=== PATIENT | female | born 2000 | race African-American/Black ===

== ENCOUNTER 2018-08-13 22:33 | Inpatient (IN) | payer OTHER ==
[2018-08-14] MEDS ORDERED: NS 0.9% 1000 ML** 2,000 ML IV ONE (00:20)
[2018-08-14 00:41] LABS: Hematocrit 34 % (35-47); Hemoglobin 11.9 g/dL (12.0-16.0); Mean Corpuscular HGB Conc 35 g/dL (31-36); Mean Corpuscular Hemoglobin 33 pg (27-31); Mean Corpuscular Volume 93 fL (80-97); Platelet Count 916 10^3/uL (150-450); Red Blood Count 3.65 10^6 /uL (3.70-4.87); Red Cell Distribution Width 19 % (10.5-15); White Blood Count 13.3 10^3/uL (3.5-10.8)
[2018-08-14] MEDS ORDERED: Morphine 4 MG/ML VIAL (1 ml) 4 MG/ML VIAL IV ONE ×3 (00:42→06:49)
--- NOTE | 2018-08-14 00:50 | ED ---
Upper Extremity Pain - HPI Summary HPI Summary: The patient is a 18 y/o F presenting to [facility] with a chief complaint of increased BUE pain starting this morning. She thought that she had slept on her arm in a way that would make it sore, but then her other arm started hurting as well. She was recently in the hospital in [place] being discharged one week ago with similar symptoms from sickle cell disease. She denies fever, nausea, vomiting, CP, and abd pain. In the hospital, she was receiving Morphine 5mg and Dilaudid 1mg. - History of Current Complaint Chief Complaint: EDExtremityUpper Stated Complaint: SICKLE CELL CRISIS PER PT Time Seen by Provider: 08/14/18 00:16 Hx Obtained From: Patient Mechanism Of Injury: Other - sickle cell Onset/Duration: Started Hours Ago, Still Present Timing: Lasting Hours Severity Initially: Mild Severity Currently: Moderate Pain Location: Arm - BUE Character: Aching Aggravating Factor(s): Nothing Alleviating Factor(s): Nothing Associated Signs & Symptoms: Positive: Other - NEGATIVE: abd pain. Negative: Fever, Chest Pain, Nausea, Vomiting - Allergies/Home Medications Allergies/Adverse Reactions: Allergies Allergy/AdvReac Type Severity Reaction Status Date / Time No Known Allergies Allergy Verified 08/13/18 22:40 Home Medications: Home Medications Apheresis Infusions 1 dose IV ONCE 08/14/18 [History Confirmed 08/14/18] Folic Acid 1 mg PO DAILY 08/14/18 [History Confirmed 08/14/18] Hydroxyurea [Siklos] 1,500 mg PO DAILY WITH MEAL 08/14/18 [History Confirmed 06/29] Morphine TAB (NF) [Morphine 30 MG TAB (NF)] 45 mg PO Q6H PRN 08/14/18 [History Confirmed 08/14/18] Oxycodone HCl/Acetaminophen [Oxycodone/Acetaminophen] 1 tab PO Q4H PRN 08/14/18 [History Confirmed 08/14/18] PMH/Surg Hx/FS Hx/Imm Hx Endocrine/Hematology History: Reports: Hx Blood Disorders - sickle cell Denies: Hx Diabetes Respiratory History: Denies: Hx Asthma - Surgical History Surgery Procedure, Year, and Place: none Infectious Disease History: No Infectious Disease History: Denies: Traveled Outside the [place] in Last 30 Days - Family History Known Family History: Positive: Blood Disorder - sickle cell - Social History Alcohol Use: None Hx Substance Use: No Substance Use Type: Reports: None Hx Tobacco Use: No Smoking Status (MU): Never Smoked Tobacco Do You Chew or Dip Tobacco: No Have You Chewed or Dipped Tobacco in the LAST YEAR: No Have You Smoked in the Last Year: No Review of Systems Negative: Fever Negative: Chest Pain Negative: Abdominal Pain, Vomiting, Nausea Positive: Myalgia - BUE All Other Systems Reviewed And Are Negative: Yes Physical Exam - Summary Physical Exam Summary: Appearance: Well-appearing, Well-nourished, lying in bed comfortable Skin: Warm, dry, no obvious rash Eyes: sclera anicteric, no conjunctival pallor ENT: mucous membranes moist Neck: deferred Respiratory: No signs of respiratory distress Cardiovascular: Appears well perfused, pulses are nml Abdomen: deferred Musculoskeletal: Moving all 4 extremities without obvious discomfort Neurological: Awake and alert, mentation is normal, speech is fluent and appropriate Psychiatric: affect is normal, does not appear anxious or depressed Triage Information Reviewed: Yes Vital Signs On Initial Exam: Initial Vitals Temp Pulse Resp BP Pulse Ox 97.6 F 90 18 116/81 100 08/13/18 22:39 08/13/18 22:39 08/13/18 22:39 08/13/18 22:39 08/13/18 22:39 Vital Signs Reviewed: Yes Diagnostics - Vital Signs Vital Signs Temp Pulse Resp BP Pulse Ox 08/13/18 22:39 97.6 F 90 18 116/81 100 - Laboratory Lab Results: Lab Results 08/14/18 Range/Units 00:30 WBC 13.3 H (3.5-10.8) 10^3/uL RBC 3.65 L (3.70-4.87) 10^6 /uL Hgb 11.9 L (12.0-16.0) g/dL Hct 34 L (35-47) % MCV 93 (80-97) fL MCH 33 H (27-31) pg MCHC 35 (31-36) g/dL RDW 19 H (10.5-15) % Plt Count 916 H (150-450) 10^3/uL MPV 8.0 (7.4-10.4) fL Neut % (Auto) Pending Lymph % (Auto) Pending Ramsey % (Auto) Pending Eos % (Auto) Pending Baso % (Auto) Pending Absolute Neuts (auto) Pending Absolute Lymphs (auto) Pending Absolute Monos (auto) Pending Absolute Eos (auto) Pending Absolute Basos (auto) Pending Absolute Nucleated RBC Pending Nucleated RBC % Pending Result Diagrams: 08/14/18 00:30 08/14/18 00:30 Lab Statement: Any lab studies that have been ordered have been reviewed, and results considered in the medical decision making process. Course/Dx - Course Course Of Treatment: The patient is a 18 y/o F presenting to [facility] with a chief complaint of increased BUE pain starting this morning due to sickle cell disease , which she has recently been discharged from the hospital for one week ago. Upon physical exam, the patient exhibits no acute abnormalities. In the ED course, the patient was administered Ns, Morphine, and Oxycodone. Blood work reveals WBC of 13.3, RBC of 3.65, hgb of 11.9, hct of 34, MCH of 33, RDW of 19, plt count of 916, abs neuts of 9.2, abs monos of 1.1, nucleated RBCs of 2.0, BUN /creatinine ratio of 22.8, glucose of 131, alkaline phosphatase of 105, and total protein of 9.0. She is diagnosed with sickle cell pain. She will be a sign -out to Dr. Yodit Shelton MD, at change of shift at 0700 pending disposition. - Diagnoses Provider Diagnoses: Sickle cell pain crisis, Uncontrolled pain Discharge - Sign-Out/Discharge Documenting (check all that apply): Sign-Out Patient Signing out patient TO: Yodit Shelton - Patient is a sign-out at change of shift pending disposition. Patient Received Moderate/Deep Sedation with Procedure: No - Discharge Plan Condition: Stable Disposition: [facility] - Billing Disposition and Condition Condition: STABLE Disposition: Admitted to [facility] - Attestation Statements Document Initiated by Scribe: Yes Documenting Scribe: Shari Cam Provider For Whom Alex is Documenting (Include Credential): Dr. Norman Quiñones MD Scribe Attestation: Shari Lr scribed for Dr. Norman Quiñones MD on 08/15/18 at 0444. Scribe Documentation Reviewed: Yes Provider Attestation: The documentation as recorded by the scribe, Shari Cam accurately reflects the service I personally performed and the decisions made by me, Dr. Norman Quiñones MD Status of Alex Document: Viewed
[2018-08-14 00:59] LABS: ALT 10 U/L (7-52); AST 18 U/L (13-39); Albumin 5.1 g/dL (3.2-5.2); Albumin/Globulin Ratio 1.3 (1-3); Alkaline Phosphatase 105 U/L (34-104); Anion Gap 8 mmol/L (2-11); BUN/Creatinine Ratio 22.8 (8-20); Blood Urea Nitrogen 13 mg/dL (6-24); CO2 Carbon Dioxide 24 mmol/L (22-32); Chloride 103 mmol/L (101-111); EGFR African American 163.6 (>60); EGFR Non-African American 135.2 (>60); Globulin 3.9 g/dL (2-4); Glucose 131 mg/dL (70-100); Potassium 4.3 mmol/L (3.5-5.0); Sodium 135 mmol/L (135-145)
[2018-08-14 01:04] LABS: ABS Basophils 0.1 10^3/ul (0-0.2); ABS Eosinophils 0.2 10^3/ul (0-0.6); ABS Lymphocytes 2.8 10^3/ul (1.0-4.8); ABS Monocytes 1.1 10^3/ul (0-0.8); ABS Neutrophils 9.2 10^3/ul (1.5-7.7); ABS Nucleated RBC 0.2 10^3/ul; Eosinophil % 1.5 %; Lymphocyte % 20.8 %; Nucleated Red Blood Cells % 1.2
[2018-08-14 01:08] LABS: Polychromasia 1+
[2018-08-14] MEDS ORDERED: Morphine 10 MG/ML VIAL (1 ml) IV ONE (01:56)
[2018-08-14] MEDS ORDERED: oxyCODONE TAB* 5 MG TAB PO ONE ×2 (04:07→06:12)
[2018-08-14] MEDS: NS 0.9% 1000 ML** 2,000 ML IV ONE (05:01)
--- NOTE | 2018-08-14 07:21 | ED ---
Progress - Progress Note Progress Note: Pt is a signout from Dr. Quiñones at 0700 on 08/14/18 pending further workup, seen by Dr. Shelton at 0700. She is a 18 y/o F who presented to the ED with a chief complaint of pain. She has hx of sickle cell disease with flare-ups, and her current flare up is mostly in her bilateral upper extremity joints. She was doing apheresis transfusions last year when her dba decided to take a break, starting around . Her dba is Dr. Ohara and her PCP is Sia Winslow in [place]. Her sickle crises usually happen approximately once a month, but she does not come into the hospital every time. She reports bilateral upper extremity joint pain with some chest discomfort when she presses on it. She denies abd pain, burning with urination, dysuria, headache, dizziness, fever, and visual changes. LNMP about 1 month ago but they are irregular. Vital signs while in room: HR 101bpm, BP 140/91, SaO2 100% on room air. Appearance: Well-appearing, moderate pain distress, well-nourished. Rubbing her R hand joints while talking, coherent, does not appear over-medicated with narcotics, speech clear Skin: Warm; color reflects adequate perfusion, dry; multiple macular round dark spots approximately 1cm diameter covering bilateral anterior tibiae Head: Normal Head/Face inspection, atraumatic Eyes: Conjunctiva clear, pupils midpoint ENT: Normal inspection, mucosa moist Neck: Supple, no nodes, no JVD Respiratory: Lungs clear, normal breath sounds, no respiratory distress Cardio: RRR, No murmur, pulses normal, brisk capillary refill Abdomen: Soft, nontender, no masses, non-distended Bowel sounds: Present Musculoskeletal: Strength Intact/ROM intact, no calf tenderness, no edema, no joint deformities Psychological: Normal Neuro: Alert, muscle tone normal, no focal deficit, moves all extremities well Home Medications Medication Instructions Recorded Confirmed Type Apheresis Infusions 1 dose IV ONCE 08/14/18 08/14/18 History Folic Acid 1 mg PO DAILY 08/14/18 08/14/18 History Hydroxyurea [Siklos] 1,500 mg PO DAILY WITH MEAL 08/14/18 08/14/18 History Morphine TAB (NF) [Morphine 30 MG 45 mg PO Q6H PRN 08/14/18 08/14/18 History TAB (NF)] Oxycodone HCl/Acetaminophen 1 tab PO Q4H PRN 08/14/18 08/14/18 History [Oxycodone/Acetaminophen] Course/Dx - Course Course Of Treatment: Pt is a signout from Dr. Quiñones at 0700 on 08/14/18 pending further workup. She has hx of sickle cell disease with flare-ups, and her current flare up is mostly in her bilateral upper extremity joints. Her sickle crises usually happen approximately once a month, but she does not come into the hospital every time. She lives in [place], but is in [place] today because her sister lives here, and she came her for support, because her mother is currently traveling for her job. She reports bilateral upper extremity joint pain with some chest discomfort when she presses on her chest. She denies SOB, abd pain, burning with urination, dysuria, headache, dizziness, fever, and visual changes. LNMP about 1 month ago, but states they are irregular. Vital signs while in room: HR 101bpm, BP 140/91, SaO2 100% on room air. Her dba is Dr. Ohara of [facility], and her PCP is Sia Zamora. Pt receives A-phoresis with Dr. Ohara for treatment of her sickle disease, but they have been "taking a break" from this, and her last treatment was September 2017. In the ED course, pt was given Morphine 23 mg total in 4 doses, and also oxycodone 10mg po x 2, with some relief. But after these above narcotic doses and 4 liters of fluid, pt will be admitted for sickle cell crisis and pain control. Pt agrees to admission, and Dr. Sebastian accepts for admission. I spoke with Dr. Sebastian at 0726 about the pt's present condition who will be accepting the pt to [facility] while we set up contact with her dba. While under Dr. Quiñones's care, the pt received 4 doses of Morphine IV as well as two doses of Oxycodone orally. I gave the pt one dose of Hydromorphone IV. - Diagnoses Provider Diagnoses: Sickle cell pain crisis, Uncontrolled pain - Provider Notifications Discussed Care Of Patient With: Varghese Sebastian - admit Time Discussed With Above Provider: 08:26 Discharge - Sign-Out/Discharge Documenting (check all that apply): Patient Departure, Receiving Sign-Out Receiving patient FROM: Norman Quiñones - Discharge Plan Condition: Stable Disposition: ADMITTED TO [facility] - Billing Disposition and Condition Condition: STABLE Disposition: Admitted to [facility] - Attestation Statements Document Initiated by Abe: Yes Documenting Scribe: Taryn Petit Provider For Whom Alex is Documenting (Include Credential): Dr. Yodit Shelton MD. Scribe Attestation: Taryn Lr, scribed for Dr. Yodit Shelton MD. on 08/15/18 at 0459. Scribe Documentation Reviewed: Yes Provider Attestation: The documentation as recorded by the jeannieibe, Taryn Petit accurately reflects the service I personally performed and the decisions made by me, Dr. Yodit Shelton MD. Status of Scribe Document: Viewed Consult Consult: [id number] - I spoke with Dr. Sebastian about the pt's present condition, who will be accepting her to [facility] with dx including sickle cell pain crisis and uncontrolled pain.
[2018-08-14] MEDS ORDERED: HYDROmorphone INJ1* 1 MG/ML SYRINGE IV SLOW PU ONE (07:31)
[2018-08-14 08:06] LABS: HCG Pregnancy < 0.60 mIU/mL
[2018-08-14] MEDS ORDERED: Naloxone* 0.4 MG/ML 1 ML VIAL IV PUSH PRN (08:22)
[2018-08-14] MEDS ORDERED: Ondansetron INJ* 2 MG/ML VIAL IV PRN (08:39)
[2018-08-14 08:57] LABS: Urine Appearance Clear; Urine Bilirubin Negative (Negative); Urine Blood Negative (Negative); Urine Color Yellow; Urine Glucose Negative (Negative); Urine Ketones Negative (Negative); Urine Nitrite Negative (Negative); Urine Protein Negative (Negative); Urine Urobilinogen Negative (Negative)
[2018-08-14] MEDS ORDERED: HYDROmorphone PCA* 20 MG/20 ML PCA.SYRING PCA SCH ×2 (09:00→17:17)
[2018-08-14] MEDS: NS 0.9% 1000 ML** 1,000 ML IV SCH (10:55)
[2018-08-14] MEDS: Docusate CAP* 100 MG PO SCH (11:25)
[2018-08-14] MEDS: Folic Acid TAB* 1 MG PO SCH (11:26)
[2018-08-14] MEDS: Enoxaparin(*) 40 MG/0.4 ML SYR SUBCUT SCH (11:26)
--- NOTE | 2018-08-14 11:46 | HP ---
ADMISSION HISTORY AND PHYSICAL: DATE OF ADMISSION: 08/14/18 PRIMARY CARE PROVIDER: Dr. Winslow in [place]. LIVESTOCK EXHIBITOR: Dr. Ohara at [facility]. HEALTHCARE PROXY: Her mother. CODE STATUS: Full. SOURCE OF INFORMATION: History obtained from interview with the patient. RELIABILITY: Good. CHIEF COMPLAINT: Pain. HISTORY OF PRESENT ILLNESS: This is a 18-year-old with past medical history of sickle cell disease, who had a recent hospital stay at [facility] approximately on lasting 4 to 5 days with vaso-occlusive crisis after returning from a trip to [facility] where she had upper respiratory tract infection. Previously, she has had several hospital stays per year,;however, this has been increasing this year reportedly, which the patient relates her bird keeper thinks it is secondary to advancing age as well as break from her apheresis treatments, which were stopped last October. Two days prior to this hospital stay, she developed brief chest pain, which then resolved and then developed arm pain, which then began to hurt in her left arm as well as her back, but not consistently. She typically has leg and back pain when she has pain crises. She denies any fevers or shortness of breath, nausea, vomiting, dysuria, GI, or other symptoms. Her medications at home have been changing in regards to her pain control and the attempts to have better controlled her pain, prevent hospital stays, otherwise no other changes to her medications. PAST MEDICAL HISTORY: Includes sickle cell disease. HOME MEDICATIONS: Include: 1. Hydroxyurea 1500 mg daily. 2. Folic acid 1 mg daily. 3. Long-acting morphine 45 mg twice daily, p.r.n. 4. Morphine 45 mg every 4 hours p.r.n. ALLERGIES: None. FAMILY HISTORY: Mother and father both have sickle trait. SOCIAL HISTORY: She works at [employer]. Not a smoker. REVIEW OF SYSTEMS: As per HPI, otherwise all other systems negative. PHYSICAL EXAMINATION GENERAL: A 18-year-old female, lying flat in bed, interactive, in no apparent distress. Vitals: In the emergency room 140/91, heart rate 93, respiratory rate is 16, she is 100% on room air, T-max is 98 degrees. HEENT: Oropharynx is clear. Nonicteric sclerae. No conjunctival pallor. LUNGS: Her lungs are clear to auscultation. HEART: Regular rate and rhythm. No murmurs, rubs, or gallops. EXTREMITIES: Warm and well perfused. She has no clubbing, cyanosis, or edema. NEUROLOGIC: She is alert and oriented x3. Her cranial nerves II through XII are intact. DIAGNOSTIC STUDIES/LAB DATA: Labs reviewed. White blood cell count 13.3, hemoglobin 11.9 with an MCV of 93, platelets 916. BUN 13, creatinine 0.57. Urine is pending. Data, chest x-ray pending. ASSESSMENT AND PLAN: This is a 18-year-old female with past medical history of sickle cell disease presenting with a second vaso-occlusive crisis without apparent complication this year. 1. Pain crisis. Concern is if she is placed on p.r.n. dosing, she will receive inadequate pain medication during this hospital stay secondary to the low frequency of patients with sickle disease treat the patient with pain crises. Place the patient on MOLD MOVER with Dilaudid loading dose 0.5 mg, bolus 0.2 lockout 10 and continue dose of 0.3. I suspect she will need to increase in the next 1 or 2 hours to achieve steady state dosing with pain control. Continue normal saline at 75 cc, bowel regimen, MiraLax and Colace daily. Spirometry with nursing education. Chest x-ray is pending given her presence of chest pain, although no fever or shortness of breath and the pain is only pleuritic, not constant. Low suspicion for acute chest. 2. DVT prophylaxis is Lovenox. [id number]/[facility] #: [id number] MTDShannon
[2018-08-14] MEDS: HydroxyUREA CAP* 500 MG CAP PO SCH (12:44)
--- NOTE | 2018-08-14 22:34 | CONS ---
CC: Dr. Winslow of primary care in [place]; Dr. Ohara at [facility] in Hematology * MEDICAL ONCOLOGY/HEMATOLOGY CONSULTATION NOTE: DATE OF CONSULT: 08/14/18 REASON FOR CONSULTATION: Sickle cell anemia. HISTORY OF PRESENT ILLNESS: Magalis Fontaine is a 18-year-old female who reports a history of SS disease, sickle cell anemia. She reports that she has had symptomatic issues since at least age 3. 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 She has had multiple hospitalizations over time typically once or twice a year in [place]. She is cared for there by the hospitalist service when she is admitted. Reports that the rest room matron in [place] do not care for her. She has previously been seen by the hematology service at [facility] , and more recently since April 2017 [address] Ohara at [facility]. She received apheresis therapy to try to maintain adequate H and H and to limit need for iron and prevent iron overload from April to October of 2017. During this period of time, she had no more than 1 or 2 hospitalizations over the course of the year. Since stopping her apheresis therapy, she reports, she has been hospitalized approximately once a month. She most recently was hospitalized in [place] at [facility] and discharged home on 07/31/17. She was in the hospital for 4 to 5 days with a vaso-occlusive crisis after returning to [place] from a trip to [facility] with a sinus infection. She reports that she was not treated with antibiotics during that period of time, just IV fluids and pain medications. Two days prior to this hospitalization, she developed a brief episode of chest pain, which then resolved, but then more recently developed pain in her arms, which she rates as an 8/10 at the time of admission, although now currently down to 6/10. She denies any significant shortness of breath with this episode. Her pain medications have recently been changed and her primary care physician is trying to transition them. She reports that in the past she was using MS Contin 45 mg on a p.r.n. basis up to 2 times per day and short acting morphine 45 mg q.4 hours p.r.n. More recently, the MS Contin is to have been used is a long acting medication, but she has been using oxycodone and OxyContin for her short-acting pain medications. PAST MEDICAL HISTORY: Episode of renal failure at age 8 with a 1 month hospitalization. She does not believe that she received dialysis at that time. PAST SURGICAL HISTORY: No surgeries. Hospitalization is otherwise only for sickle cell disease. HOME MEDICATIONS: 1. Hydroxyurea 1500 mg daily. 2. Folic acid 1 mg daily. 3. MS Contin 45 mg b.i.d. p.r.n. 4. Oxycodone/Percocet p.r.n. ALLERGIES: None. FAMILY HISTORY: Mother, father and sister all have sickle cell trait. No other family members with sickle cell anemia. SOCIAL HISTORY: The patient works for [employer]. She is not a smoker or a drinker. No illicit drugs. REVIEW OF SYSTEMS: No hypertension, diabetes, IN or CVA. No significant change in appetite or weight. No significant change in bowel or bladder habits. Review of systems is otherwise negative except as discussed above. PHYSICAL EXAM: Vital Signs: Blood pressure 140/91, pulse in the 90s, O2 saturation 100% on room air, afebrile. HEENT: PERRL, EOMI. No erythema or exudates. No scleral icterus. No palpable cervical, supraclavicular, or axillary adenopathy. Lungs: Clear. Heart: Regular rate and rhythm without murmurs, rubs or gallops. Abdomen: Soft, nontender without masses or organomegaly. Extremities: No clubbing cyanosis or edema. Back: No CVA or spinal tenderness. Neurological Exam: Without focal deficits. LABORATORY STUDIES: CBC: White count 13,300, H and H with a hemoglobin of 11.9 , platelet count 916,000. MCV of 93. Review of the peripheral smear revealed evidence of [place] bodies as well as target cells. No sickle cells are seen at the present time. She has occasional nucleated red blood cells. IMPRESSION AND PLAN: A 18-year-old female with SS disease. Given the [place] bodies and the target cells seen, she has functional asplenia. She is currently having a vaso-occlusive crisis after having had one just recently. She is receiving appropriate amounts of IV fluids. 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 She certainly should be continued on her usual folic acid and hydroxyurea. There is no role for antibiotics at this time as her chest x-ray is negative and she is afebrile. In the past, with similar crisis, she has improved within several days. Given her rapid increase in the number of recent hospitalizations , she plans to check back with her doctor at [facility] in [place] , Dr. Ohara in terms of the potential need for further exchange transfusions. However, given the fact that no sickle cells are seen on her peripheral smear , this is no likely to improve the current situation acutely. Her high platelet count is almost certainly due to her functional asplenia. She will remain in the hospital service, but we will continue to follow her. Her pain has decreased and she has been placed on the current pain regimen down from an 8/10 to a 6/10. She reports that even when she is on a crisis, she has a pain that typically ranges from 0 to 2 on a scale of 1 to 10. [id number]/[facility] #: [id number] MTDShannon
[2018-08-15] MEDS: NS 0.9% 1000 ML** 1,000 ML IV SCH (00:17)
[2018-08-15 07:55] LABS: Hematocrit 29 % (35-47); Hemoglobin 10.3 g/dL (12.0-16.0); Mean Corpuscular HGB Conc 36 g/dL (31-36); Mean Corpuscular Hemoglobin 33 pg (27-31); Mean Corpuscular Volume 93 fL (80-97); Mean Platelet Volume 7.8 fL (7.4-10.4); Platelet Count 826 10^3/uL (150-450); Red Cell Distribution Width 19 % (10.5-15); White Blood Count 10.4 10^3/uL (3.5-10.8)
[2018-08-15 07:56] LABS: ABS Basophils 0.1 10^3/ul (0-0.2); ABS Eosinophils 0.6 10^3/ul (0-0.6); ABS Lymphocytes 3.1 10^3/ul (1.0-4.8); ABS Monocytes 1.2 10^3/ul (0-0.8); ABS Neutrophils 5.4 10^3/ul (1.5-7.7); ABS Nucleated RBC 0.1 10^3/ul; Eosinophil % 5.9 %; Lymphocyte % 29.5 %; Nucleated Red Blood Cells % 1.2
[2018-08-15] MEDS: Docusate CAP* 100 MG PO SCH (10:06)
[2018-08-15] MEDS: Enoxaparin(*) 40 MG/0.4 ML SYR SUBCUT SCH (10:06)
[2018-08-15] MEDS: Polyethylene Glycol 3350* 17 GM PACKET PO SCH (10:06)
[2018-08-15] MEDS: Folic Acid TAB* 1 MG PO SCH (10:07)
[2018-08-15] MEDS: HydroxyUREA CAP* 500 MG CAP PO SCH (10:07)
--- NOTE | 2018-08-15 17:34 | PN ---
Subjective Date of Service: 08/15/18 Interval History: Pain better but persists in right arm, back and intermittently in chest with deep breathing Objective Active Medications: Docusate Sodium (Colace Cap*) 200 mg PO DAILY [facility] Last Admin: 08/15/18 10:06 Dose: 200 mg Enoxaparin Sodium (Lovenox(*)) 40 mg SUBCUT Q24H [facility] Last Admin: 08/15/18 10:06 Dose: 40 mg Folic Acid (Folvite Tab*) 1 mg PO DAILY [facility] Last Admin: 08/15/18 10:07 Dose: 1 mg Hydroxyurea (Hydrea Cap*) 1,500 mg PO DAILY WITH MEAL [facility] Last Admin: 08/15/18 10:07 Dose: 1,500 mg Sodium Chloride (Ns 0.9% 1000 Ml) 1,000 mls @ 75 mls/hr IV PER RATE [facility] Last Admin: 08/15/18 00:17 Dose: 75 mls/hr Hydromorphone HCl (Dilaudid Supervisor Screen Making*) 20 mg in 20 mls @ 0 mls/hr CARBURETOR REPAIRER .change Q24H [facility]; Protocol Last Admin: 08/15/18 10:01 Dose: 0.6 mls/hr Naloxone HCl (Narcan*) 0.08 mg IV PUSH .Q2MIN PRN PRN Reason: OVERSEDATION Ondansetron HCl (Zofran Inj*) 4 mg IV Q4H PRN PRN Reason: NAUSEA/VOMITING Polyethylene Glycol/Electrolytes (Miralax*) 17 gm PO DAILY [facility] Last Admin: 08/15/18 10:06 Dose: 17 gm Vital Signs - 8 hr 08/15/18 08/15/18 08/15/18 10:00 10:01 11:15 Temperature 98.7 F Pulse Rate 94 Respiratory 16 16 16 Rate Blood Pressure (mmHg) O2 Sat by Pulse 100 100 Oximetry 08/15/18 08/15/18 08/15/18 11:29 12:00 13:30 Temperature Pulse Rate Respiratory 16 14 Rate Blood Pressure 101/53 (mmHg) O2 Sat by Pulse 100 Oximetry 08/15/18 08/15/18 14:00 15:49 Temperature 98.4 F Pulse Rate 99 Respiratory 16 16 Rate Blood Pressure 104/58 (mmHg) O2 Sat by Pulse 100 100 Oximetry Oxygen Devices in Use Now: None Appearance: NAD, lying flat Eyes: No Scleral Icterus, PERRLA Ears/Nose/Mouth/Throat: NL Teeth, Lips, Gums, Clear Oropharnyx Neck: NL Appearance and Movements; NL JVP, Trachea Midline Respiratory: Symmetrical Chest Expansion and Respiratory Effort, Clear to Auscultation Cardiovascular: NL Sounds; No Murmurs; No JVD, RRR Abdominal: NL Sounds; No Tenderness; No Distention, No Hepatosplenomegaly Lymphatic: No Cervical Adenopathy Extremities: No Edema Skin: No Rash or Ulcers Neurological: Alert and Oriented x 3 Result Diagrams: 08/15/18 07:39 08/14/18 00:30 Additional Lab and Data: Lab Results 08/14/18 Range/Units 00:30 WBC 13.3 H (3.5-10.8) 10^3/uL RBC 3.65 L (3.70-4.87) 10^6 /uL Hgb 11.9 L (12.0-16.0) g/dL Hct 34 L (35-47) % MCV 93 (80-97) fL MCH 33 H (27-31) pg MCHC 35 (31-36) g/dL RDW 19 H (10.5-15) % Plt Count 916 H (150-450) 10^3/uL MPV 8.0 (7.4-10.4) fL Neut % (Auto) Pending Lymph % (Auto) Pending [place] % (Auto) Pending Eos % (Auto) Pending Baso % (Auto) Pending Absolute Neuts (auto) Pending Absolute Lymphs (auto) Pending Absolute Monos (auto) Pending Absolute Eos (auto) Pending Absolute Basos (auto) Pending Absolute Nucleated RBC Pending Nucleated RBC % Pending Assess/Plan/Problems-Billing Assessment: 18 yo F h/o sickle cell disease presents with vasoocclusive pain crisis - Patient Problems (1) Vaso-occlusive pain due to sickle cell disease Comment: c/w fluids c/w dilaudid CARBURETOR REPAIRER but consider transition to PO tomorrow if pain continues to improve c/w folic acid and hydroxyurea will need to connect with snf provider to continue apharesis when discharged (2) DVT prophylaxis Comment: lovenox
[2018-08-15] MEDS ORDERED: HYDROmorphone PCA* 20 MG/20 ML PCA.SYRING PCA SCH (18:44)
[2018-08-16] MEDS: NS 0.9% 1000 ML** 1,000 ML IV SCH ×2 (03:00→17:05)
[2018-08-16 06:14] LABS: ABS Basophils 0.1 10^3/ul (0-0.2); ABS Eosinophils 0.5 10^3/ul (0-0.6); ABS Lymphocytes 2.9 10^3/ul (1.0-4.8); ABS Monocytes 1.1 10^3/ul (0-0.8); ABS Neutrophils 4.2 10^3/ul (1.5-7.7); ABS Nucleated RBC 0.2 10^3/ul; Eosinophil % 5.7 %; Hematocrit 29 % (35-47); Hemoglobin 10.3 g/dL (12.0-16.0); Lymphocyte % 33.3 %; Mean Corpuscular HGB Conc 35 g/dL (31-36); Mean Corpuscular Hemoglobin 33 pg (27-31); Mean Corpuscular Volume 95 fL (80-97); Mean Platelet Volume 7.8 fL (7.4-10.4); Nucleated Red Blood Cells % 1.9; Platelet Count 678 10^3/uL (150-450); Red Blood Count 3.07 10^6 /uL (3.70-4.87); Red Cell Distribution Width 18 % (10.5-15); White Blood Count 8.8 10^3/uL (3.5-10.8)
[2018-08-16] MEDS: Enoxaparin(*) 40 MG/0.4 ML SYR SUBCUT SCH (07:58)
[2018-08-16] MEDS: Folic Acid TAB* 1 MG PO SCH (07:58)
[2018-08-16] MEDS: Polyethylene Glycol 3350* 17 GM PACKET PO SCH (07:58)
[2018-08-16] MEDS: Docusate CAP* 100 MG PO SCH (07:58)
[2018-08-16] MEDS: HydroxyUREA CAP* 500 MG CAP PO SCH (08:07)
--- NOTE | 2018-08-16 11:40 | PN ---
Subjective Date of Service: 08/16/18 Interval History: Ms. 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 She notes that she has been on long acting morphine 45mg po BID for a long time. This is confirmed via istop. She also takes oxycodone or short acting morphine for breakthrough pain. Objective Active Medications: Docusate Sodium (Colace Cap*) 200 mg PO DAILY [facility] Enoxaparin Sodium (Lovenox(*)) 40 mg SUBCUT Q24H [facility] Folic Acid (Folvite Tab*) 1 mg PO DAILY [facility] Hydroxyurea (Hydrea Cap*) 1,500 mg PO DAILY WITH MEAL [facility] Sodium Chloride (Ns 0.9% 1000 Ml) 1,000 mls @ 75 mls/hr IV PER RATE [facility] Hydromorphone HCl (Dilaudid Trolley Car Operator*) 20 mg in 20 mls @ 0 mls/hr ELECTRICAL FOREMAN .change Q24H [facility]; Protocol Naloxone HCl (Narcan*) 0.08 mg IV PUSH .Q2MIN PRN Ondansetron HCl (Zofran Inj*) 4 mg IV Q4H PRN Polyethylene Glycol/Electrolytes (Miralax*) 17 gm PO DAILY [facility] Vital Signs: Temp Pulse Resp BP Pulse Ox 98 F 98 22 98/52 100 08/16/18 11:18 08/16/18 11:18 08/16/18 11:18 08/16/18 11:18 08/16/18 11:18 Oxygen Devices in Use Now: None Appearance: Female lying in bed in NAD Eyes: No Scleral Icterus Ears/Nose/Mouth/Throat: Mucous Membranes Moist Neck: Trachea Midline Respiratory: Symmetrical Chest Expansion and Respiratory Effort, Clear to Auscultation Cardiovascular: NL Sounds; No Murmurs; No JVD, No Edema Abdominal: NL Sounds; No Tenderness; No Distention Extremities: No Edema Skin: No Rash or Ulcers Neurological: Alert and Oriented x 3, NL Muscle Strength and Tone Result Diagrams: 08/16/18 05:54 08/14/18 00:30 Additional Lab and Data: . Assess/Plan/Problems-Billing Assessment: Ms. Fontaine is a 18 yo F h/o sickle cell disease presents with vasoocclusive pain crisis. - Patient Problems (1) Vaso-occlusive pain due to sickle cell disease Comment: - c/w fluids - switch to morphine ER per home dose with dilaudid IV intermittently for breakthrough pain. - c/w folic acid and hydroxyurea - will need to connect with long term care social worker provider to continue apharesis when discharged (2) DVT prophylaxis Comment: - lovenox Status and Disposition: Inpatient. Anticipate discharge to home when medically stable.
[2018-08-16] MEDS ORDERED: HYDROmorphone INJ* 0.5 MG/0.5 ML SYRINGE IV SLOW PU PRN (12:05)
[2018-08-16] MEDS: Morphine TAB Extended Release (*) 30 MG TAB.ER PO SCH ×2 (12:19→20:01)
[2018-08-16] MEDS: Morphine TAB Extended Release (*) 15 MG TAB.ER PO SCH ×2 (12:19→20:00)
[2018-08-16] MEDS: HYDROmorphone INJ1* 1 MG/ML SYRINGE IV SLOW PU PRN ×3 (13:32→22:23)
[2018-08-16 17:52] LABS: Hemoglobin Variant 2 42.7 = Hb C %; Variant Hemoglobin 51.2 = Hb S %
[2018-08-17] MEDS: HYDROmorphone INJ1* 1 MG/ML SYRINGE IV SLOW PU PRN ×4 (03:40→19:41)
[2018-08-17 06:15] LABS: Hematocrit 28 % (35-47); Hemoglobin 10.3 g/dL (12.0-16.0); Mean Corpuscular HGB Conc 36 g/dL (31-36); Mean Corpuscular Hemoglobin 34 pg (27-31); Mean Corpuscular Volume 93 fL (80-97); Mean Platelet Volume 7.9 fL (7.4-10.4); Platelet Count 693 10^3/uL (150-450); Red Blood Count 3.07 10^6 /uL (3.70-4.87); Red Cell Distribution Width 18 % (10-15); White Blood Count 9.1 10^3/uL (3.5-10.8)
[2018-08-17] MEDS: Morphine TAB Extended Release (*) 15 MG TAB.ER PO SCH (07:38)
[2018-08-17] MEDS: Morphine TAB Extended Release (*) 30 MG TAB.ER PO SCH ×2 (07:38→21:23)
[2018-08-17] MEDS: HydroxyUREA CAP* 500 MG CAP PO SCH (07:42)
[2018-08-17] MEDS: Folic Acid TAB* 1 MG PO SCH (07:42)
[2018-08-17] MEDS: Polyethylene Glycol 3350* 17 GM PACKET PO SCH (07:42)
[2018-08-17] MEDS: Docusate CAP* 100 MG PO SCH (07:42)
[2018-08-17] MEDS: Enoxaparin(*) 40 MG/0.4 ML SYR SUBCUT SCH (07:44)
[2018-08-17] MEDS: NS 0.9% 1000 ML** 1,000 ML IV SCH ×3 (07:47→22:48)
[2018-08-17 07:58] LABS: ABS Basophils 0.1 10^3/ul (0-0.2); ABS Eosinophils 0.4 10^3/ul (0-0.6); ABS Lymphocytes 2.2 10^3/ul (1.0-4.8); ABS Monocytes 1.1 10^3/ul (0-0.8); ABS Neutrophils 5.3 10^3/ul (1.5-7.7); ABS Nucleated RBC 0.1 10^3/ul; Eosinophil % 4.5 %; Lymphocyte % 24.4 %; Nucleated Red Blood Cells % 0.9
[2018-08-17] MEDS: oxyCODONE TAB* 5 MG TAB PO PRN ×2 (13:08→22:51)
--- NOTE | 2018-08-17 14:45 | PN ---
Subjective Date of Service: 08/17/18 Interval History: Ms. Fontaine reports ongoing pain to her right arm that is only minimally helped by the pain regimen thus far. She denies other complaint. She notes consistent follow up with her sickle cell specialist in [place]. Objective Active Medications: Docusate Sodium (Colace Cap*) 200 mg PO DAILY [facility] Enoxaparin Sodium (Lovenox(*)) 40 mg SUBCUT Q24H [facility] Folic Acid (Folvite Tab*) 1 mg PO DAILY [facility] Hydromorphone HCl (Dilaudid Inj1s*) 2 mg IV SLOW PU Q4H PRN Hydroxyurea (Hydrea Cap*) 1,500 mg PO DAILY WITH MEAL [facility] Sodium Chloride (Ns 0.9% 1000 Ml) 1,000 mls @ 75 mls/hr IV PER RATE [facility] Morphine Sulfate (Ms Contin(*)) 60 mg PO BID [facility] Naloxone HCl (Narcan*) 0.08 mg IV PUSH .Q2MIN PRN Ondansetron HCl (Zofran Inj*) 4 mg IV Q4H PRN Oxycodone HCl (Roxycodone Tab*) 20 mg PO Q4H PRN Polyethylene Glycol/Electrolytes (Miralax*) 17 gm PO DAILY [facility] Vital Signs: Temp Pulse Resp BP Pulse Ox 98.4 F 96 18 104/62 100 08/17/18 11:00 08/17/18 11:00 08/17/18 13:08 08/17/18 11:00 08/17/18 11:00 Oxygen Devices in Use Now: None Appearance: Female lying in bed in NAD Eyes: No Scleral Icterus Ears/Nose/Mouth/Throat: Mucous Membranes Moist Respiratory: Symmetrical Chest Expansion and Respiratory Effort, Clear to Auscultation Cardiovascular: NL Sounds; No Murmurs; No JVD, No Edema Abdominal: NL Sounds; No Tenderness; No Distention Skin: No Rash or Ulcers Neurological: Alert and Oriented x 3, NL Muscle Strength and Tone Nutrition: Taking PO's Result Diagrams: 08/17/18 05:46 08/14/18 00:30 Additional Lab and Data: . Assess/Plan/Problems-Billing Assessment: Ms. Fontaine is a 18 yo F h/o sickle cell disease presents with vasoocclusive pain crisis. - Patient Problems (1) Vaso-occlusive pain due to sickle cell disease Comment: - Some slow improvement noted - Increase morphine ER to 60mg po BID, oxycodone 20mg po prn added, continue IV dilaudid prn but hope to discontinue by tomorrow - Continue folic acid and hydroxyurea - Patient receiving consistent and close follow up with sickle cell specialist in [place], including routine aphresis (2) DVT prophylaxis Comment: - Lovenox Status and Disposition: Inpatient. Anticipate discharge to home when medically stable.
[2018-08-18] MEDS: HYDROmorphone INJ1* 1 MG/ML SYRINGE IV SLOW PU PRN ×4 (01:25→20:44)
[2018-08-18] MEDS: oxyCODONE TAB* 5 MG TAB PO PRN ×4 (03:44→23:32)
[2018-08-18] MEDS: Enoxaparin(*) 40 MG/0.4 ML SYR SUBCUT SCH (07:14)
[2018-08-18] MEDS: Folic Acid TAB* 1 MG PO SCH (07:19)
[2018-08-18] MEDS: Morphine TAB Extended Release (*) 30 MG TAB.ER PO SCH ×2 (07:19→20:44)
[2018-08-18] MEDS: Docusate CAP* 100 MG PO SCH (07:19)
[2018-08-18] MEDS: HydroxyUREA CAP* 500 MG CAP PO SCH (07:21)
[2018-08-18] MEDS: Polyethylene Glycol 3350* 17 GM PACKET PO SCH (07:34)
--- NOTE | 2018-08-18 08:11 | PN ---
Subjective Date of Service: 08/18/18 Interval History: Ms. Fontaine reports that she continues to have significant right arm and shoulder pain despite the adjustments made in her narcotic regimen. She believes that the oxycodone does help and she is interested in trying an increased dose of that in an effort to move away from IV dilaudid. She denies other complaint. Objective Active Medications: Docusate Sodium (Colace Cap*) 200 mg PO DAILY [facility] Enoxaparin Sodium (Lovenox(*)) 40 mg SUBCUT Q24H [facility] Folic Acid (Folvite Tab*) 1 mg PO DAILY [facility] Hydromorphone HCl (Dilaudid Inj1s*) 2 mg IV SLOW PU Q4H PRN Hydroxyurea (Hydrea Cap*) 1,500 mg PO DAILY WITH MEAL [facility] Sodium Chloride (Ns 0.9% 1000 Ml) 1,000 mls @ 75 mls/hr IV PER RATE [facility] Morphine Sulfate (Ms Contin(*)) 60 mg PO BID [facility] Naloxone HCl (Narcan*) 0.08 mg IV PUSH .Q2MIN PRN Ondansetron HCl (Zofran Inj*) 4 mg IV Q4H PRN Oxycodone HCl (Roxycodone Tab*) 20 mg PO Q4H PRN Polyethylene Glycol/Electrolytes (Miralax*) 17 gm PO DAILY [facility] Vital Signs: Temp Pulse Resp BP Pulse Ox 98.5 F 86 18 100/56 100 08/18/18 06:07 08/18/18 06:07 08/18/18 07:34 08/18/18 06:07 08/18/18 06:07 Oxygen Devices in Use Now: None Appearance: Female lying in bed in NAD Eyes: No Scleral Icterus Ears/Nose/Mouth/Throat: Mucous Membranes Moist Respiratory: Symmetrical Chest Expansion and Respiratory Effort, Clear to Auscultation Cardiovascular: NL Sounds; No Murmurs; No JVD, No Edema Abdominal: NL Sounds; No Tenderness; No Distention Extremities: No Edema Skin: No Rash or Ulcers Neurological: Alert and Oriented x 3, NL Muscle Strength and Tone Nutrition: Taking PO's Result Diagrams: 08/17/18 05:46 08/14/18 00:30 Additional Lab and Data: . Assess/Plan/Problems-Billing Assessment: Ms. Fontaine is a 18 yo F h/o sickle cell disease presents with vasoocclusive pain crisis. - Patient Problems (1) Vaso-occlusive pain due to sickle cell disease Comment: - Continued slow improvement - Continue morphine ER 60mg po BID, increase oxycodone to 30mg q4h, continue IV dilaudid prn but hope to discontinue by tomorrow - Continue folic acid and hydroxyurea - Patient receiving consistent and close follow up with sickle cell specialist in [place], including routine aphresis (2) DVT prophylaxis Comment: - Lovenox Status and Disposition: Inpatient. Anticipate discharge to home when medically stable.
[2018-08-18] MEDS: NS 0.9% 1000 ML** 1,000 ML IV SCH (12:23)
[2018-08-19] MEDS: NS 0.9% 1000 ML** 1,000 ML IV SCH (01:42)
[2018-08-19] MEDS: HYDROmorphone INJ1* 1 MG/ML SYRINGE IV SLOW PU PRN ×3 (01:42→10:34)
[2018-08-19 06:53] LABS: ABS Basophils 0.1 10^3/ul (0-0.2); ABS Eosinophils 0.7 10^3/ul (0-0.6); ABS Lymphocytes 2.8 10^3/ul (1.0-4.8); ABS Monocytes 0.9 10^3/ul (0-0.8); ABS Neutrophils 3.2 10^3/ul (1.5-7.7); ABS Nucleated RBC 0.1 10^3/ul; Eosinophil % 9.7 %; Hematocrit 27 % (35-47); Hemoglobin 9.8 g/dL (12.0-16.0); Lymphocyte % 35.7 %; Mean Corpuscular HGB Conc 37 g/dL (31-36); Mean Corpuscular Hemoglobin 34 pg (27-31); Mean Corpuscular Volume 93 fL (80-97); Mean Platelet Volume 7.5 fL (7.4-10.4); Platelet Count 606 10^3/uL (150-450); Red Blood Count 2.91 10^6 /uL (3.70-4.87); Red Cell Distribution Width 19 % (10-15); White Blood Count 7.7 10^3/uL (3.5-10.8)
[2018-08-19] MEDS: oxyCODONE TAB* 5 MG TAB PO PRN ×2 (08:09→12:33)
[2018-08-19] MEDS: Folic Acid TAB* 1 MG PO SCH (08:12)
[2018-08-19] MEDS: Morphine TAB Extended Release (*) 30 MG TAB.ER PO SCH (08:12)
[2018-08-19] MEDS: Docusate CAP* 100 MG PO SCH (08:12)
[2018-08-19] MEDS: HydroxyUREA CAP* 500 MG CAP PO SCH (08:13)
[2018-08-19] MEDS: Enoxaparin(*) 40 MG/0.4 ML SYR SUBCUT SCH (08:14)
[2018-08-19] MEDS: Polyethylene Glycol 3350* 17 GM PACKET PO SCH (08:15)
[2018-08-19 11:47] VITALS: BP 106/59
--- NOTE | 2018-08-19 12:43 | PN ---
Subjective Date of Service: 08/19/18 Interval History: Ms. Fontaine states that she continues to have pain but feels that it will be manageable on her oral pain med regimen. She denies other complaint and is amenable to discharge to go stay with her sister here in [place]. Objective Active Medications: Docusate Sodium (Colace Cap*) 200 mg PO DAILY [facility] Enoxaparin Sodium (Lovenox(*)) 40 mg SUBCUT Q24H [facility] Folic Acid (Folvite Tab*) 1 mg PO DAILY [facility] Hydromorphone HCl (Dilaudid Inj1s*) 2 mg IV SLOW PU Q4H [facility]N Hydroxyurea (Hydrea Cap*) 1,500 mg PO DAILY WITH MEAL [facility] Sodium Chloride (Ns 0.9% 1000 Ml) 1,000 mls @ 75 mls/hr IV PER RATE [facility] Morphine Sulfate (Ms Contin(*)) 60 mg PO BID [facility] Naloxone HCl (Narcan*) 0.08 mg IV PUSH .Q2MIN PRN Ondansetron HCl (Zofran Inj*) 4 mg IV Q4H PRN Oxycodone HCl (Roxycodone Tab*) 30 mg PO Q4H PRN Polyethylene Glycol/Electrolytes (Miralax*) 17 gm PO DAILY [facility] Vital Signs: Temp Pulse Resp BP Pulse Ox 98.1 F 84 18 106/59 100 08/19/18 11:00 08/19/18 11:00 08/19/18 12:33 08/19/18 11:00 08/19/18 11:00 Oxygen Devices in Use Now: None Appearance: Female lying in bed in NAD Eyes: No Scleral Icterus Ears/Nose/Mouth/Throat: Mucous Membranes Moist Respiratory: Symmetrical Chest Expansion and Respiratory Effort, Clear to Auscultation Cardiovascular: NL Sounds; No Murmurs; No JVD, No Edema Abdominal: NL Sounds; No Tenderness; No Distention Extremities: No Edema Skin: No Rash or Ulcers Neurological: Alert and Oriented x 3, NL Muscle Strength and Tone Nutrition: Taking PO's Result Diagrams: 08/19/18 06:27 08/14/18 00:30 Additional Lab and Data: . Assess/Plan/Problems-Billing Assessment: Ms. Fontaine is a 18 yo F h/o sickle cell disease presents with vasoocclusive pain crisis. - Patient Problems (1) Vaso-occlusive pain due to sickle cell disease Comment: - Continued slow improvement, pain reasonably managed on oral meds - Continue morphine ER 60mg po BID, increase oxycodone to 30mg q4h - Continue folic acid and hydroxyurea - Patient receiving consistent and close follow up with sickle cell specialist in [place], including routine aphresis (2) DVT prophylaxis Comment: - Lovenox Status and Disposition: Inpatient. Discharge to home.
--- NOTE | 2018-08-19 13:56 | DS ---
CC: Dr. Winslow * DISCHARGE SUMMARY: DATE OF ADMISSION: 08/14/18 DATE OF DISCHARGE: 08/19/18 PRIMARY CARE PROVIDER: Dr. Winslow. ATTENDING PHYSICIAN: Dr. Allen * (dictation provided by Franny Hopper NP). PRIMARY DIAGNOSIS: Sickle cell pain crisis. SECONDARY DIAGNOSES: None. MEDICATIONS AT THE TIME OF DISCHARGE: 1. Hydroxyurea 1500 mg p.o. daily with meals. 2. Folic acid 1 mg p.o. daily. 3. Morphine sulfate 60 mg p.o. b.i.d. The patient is being provided with an additional 15 mg tablets while she is continued to have some unmanaged pain. 4. Oxycodone 20 mg p.o. q.8 hours, total dispensed dose 40. HOSPITAL COURSE: Ms. Fontaine is a 18-year-old female who presented to the hospital on 08/14/18 with concern for pain in her arm and chest. Please see the dictated H and P from Dr. Varghese Sebastian for complete details. In brief, the patient had a long-term history of sickle cell disease with multiple hospitalizations due to vaso-occlusive pain crisis. In the emergency room, she had labs, which showed WBC 13.3, hemoglobin 11.9, hematocrit 34, and platelet count 916. The remainder of her labs were normal. Her vitals were stable. Ms. Fontaine was admitted to the hospital for symptomatic control of her vaso- occlusive pain crisis. She was treated with Dilaudid intravenously via PC MAINTENANCE TECHNICIAN and IV fluids. She was seen in consultation by Dr. Pavon from Hematology. He notes that "given the [facility] bodies in the target cells seen, she has functional asplenia. She should certainly be continued on her usual folic acid and hydroxyurea. There is no role for antibiotics at this time. Given her rapid increase in the number of recent hospitalizations, she plans to check back with her doctor at [facility], Dr. Ohara, in terms of the potential need for further exchange transfusions. However, given the fact that no sickle cells are seen on the peripheral smear, this is not likely to improve the current situation acutely." Ms. Fontaine has progressed slowly and was doing better today. Her pain is reasonably managed on oral medication regimen that is increased slightly from her home routine. Normally, she states to me she takes morphine sulfate ER 45 mg p.o. b.i.d. with oxycodone p.r.n. This was confirmed via I-STOP. While here in the hospital, we have increased her long-acting dose to 60 mg p.o. b.i.d. Therefore, I have given her an additional several tabs of 15 mg morphine extended release to augment her normal dose. Also given her oxycodone p.r.n. for additional management of pain in the next few days. Ms. Fontaine states she will be following with her primary care physician in [place] on 08/28/18 and that she already has an appointment to meet with her team in [place] regarding ongoing sickle cell management issue and states an intention to do. DISPOSITION: Home. DIET: Regular. ACTIVITY: As tolerated. FOLLOWUP PLANS: 1. Please follow up with Dr. Winslow. 2. Please follow up with Dr. Ohara at [facility]. TIME SPENT: Approximately 60 minutes was spent in the discharge of this patient , more than half the time was spent with the patient at the bedside reviewing the events leading up to and during this hospitalization, performing the physical examination, and reviewing my plan of care. FRANNY HOPPER NP [id number]/[facility] #: [id number] MARILEE
== END 2018-08-19 15:05 | disposition home or self-care (01) | DRG 662 ==
LOC: ED 22:33 → MED 08-14 08:39
PROVIDERS: ADMIT Internal Medicine; ATTEND Internal Medicine
DX: D57.00 Hb-SS disease with crisis, unspecified (principal); Z79.891 Long term (current) use of opiate analgesic; Z79.899 Other long term (current) drug therapy; Z83.2 Family history of diseases of the blood and blood-forming organs and certain disorders involving the immune mechanism
CPT/HCPCS: 36415; 71046; 80053; 81003; 81270; 83020; 84702; 85025; 85060; 99284; A9270-GY; J1170; J1650; J2270

== ENCOUNTER 2020-01-24 19:18 | Inpatient (IN) ==
[2020-01-24] MEDS ORDERED: NS 0.9% 1000 ml BAG 1,000 ML IV ONE (19:26)
[2020-01-24 20:10] LABS: Hematocrit 31 % (35-47); Mean Corpuscular HGB Conc 36 g/dL (31-36); Mean Corpuscular Hemoglobin 33 pg (27-31); Mean Corpuscular Volume 91 fL (80-97); Mean Platelet Volume 8.2 fL (7.4-10.4); Platelet Count 650 10^3/uL (150-450); Red Blood Count 3.39 10^6 /uL (3.70-4.87); Red Cell Distribution Width 19 % (10-15); White Blood Count 7.4 10^3/uL (3.5-10.8)
[2020-01-24 20:19] LABS: Activated Partial Thrombo Time 32.6 seconds (26.0-38.0); INR 1.21 (0.82-1.09)
[2020-01-24 20:21] LABS: Corrected Retic Count 1.6 % (0.5-1.5); Hematocrit for Retic CNT 31 % (35-47); Immature Retic Fraction 0.59; RBC Retic Count 3.37 10^6/uL (3.70-4.87)
[2020-01-24 20:32] LABS: Albumin 5.2 g/dL (3.2-5.2); Albumin/Globulin Ratio 1.4 (1-3); BUN/Creatinine Ratio 16.7 (8-20); C Reactive Protein 1.14 mg/L (<8.01); EGFR African American 172.4 (>60); EGFR Non-African American 142.5 (>60); Globulin 3.8 g/dL (2-4); Magnesium 2.1 mg/dL (1.9-2.7); Potassium 4.4 mmol/L (3.5-5.0); Total Bilirubin 1.3 mg/dL (0.2-1.0)
[2020-01-24 20:51] LABS: ABS Basophils 0.1 10^3/ul (0-0.2); ABS Eosinophils 0.1 10^3/ul (0-0.6); ABS Lymphocytes 1.1 10^3/ul (1.0-4.8); ABS Monocytes 0.6 10^3/ul (0-0.8); ABS Neutrophils 5.5 10^3/ul (1.5-7.7); Eosinophil % 1.1 %; Lymphocyte % 15.4 %; Nucleated Red Blood Cells % 0.5
[2020-01-24 20:54] LABS: Sickle Cells 1+
[2020-01-24] MEDS ORDERED: fentaNYL 100 mcg/2 ml 50 MCG/ML VIAL IV SLOW PU ONE (21:18)
[2020-01-24 22:35] LABS: Urine Appearance Clear; Urine Bilirubin Negative (Negative); Urine Blood Negative (Negative); Urine Color Yellow; Urine Glucose Negative (Negative); Urine Ketones 1+ (Negative); Urine Nitrite Negative (Negative); Urine Protein Negative (Negative); Urine Urobilinogen Negative (Negative)
[2020-01-24] MEDS ORDERED: HYDROmorphone 1 MG/1 ML SYRINGE IV ONE (23:11)
[2020-01-24] MEDS ORDERED: Ondansetron 4 mg VIAL 2 MG/ML 2 ml VIAL IV PRN (23:12)
[2020-01-24] MEDS ORDERED: HYDROmorphone 1 MG/1 ML SYRINGE IV PRN (23:26)
[2020-01-24] MEDS ORDERED: NS 0.45% 1000 ml BAG 1,000 ML IV SCH (23:45)
[2020-01-25] MEDS: fentaNYL PATCH 100 MCG/HR 1 PATCH TRANSDERM SCH (00:45)
[2020-01-25] MEDS: Enoxaparin 40 MG/0.4 ML SYR SUBCUT SCH ×2 (00:48→23:08)
[2020-01-25] MEDS: HYDROmorphone 1 MG/1 ML SYRINGE IV PRN ×9 (01:24→23:08)
[2020-01-25 04:45] LABS: ABS Basophils 0.1 10^3/ul (0-0.2); ABS Eosinophils 0.4 10^3/ul (0-0.6); ABS Neutrophils 5.5 10^3/ul (1.5-7.7); Eosinophil % 3.6 %; Hematocrit 26 % (35-47); Hemoglobin 9.2 g/dL (12.0-16.0); Lymphocyte % 30.2 %; Mean Corpuscular HGB Conc 36 g/dL (31-36); Mean Corpuscular Hemoglobin 33 pg (27-31); Mean Corpuscular Volume 92 fL (80-97); Mean Platelet Volume 7.7 fL (7.4-10.4); Nucleated Red Blood Cells % 0.2; Platelet Count 522 10^3/uL (150-450); Red Blood Count 2.79 10^6 /uL (3.70-4.87); Red Cell Distribution Width 19 % (10-15); White Blood Count 10.1 10^3/uL (3.5-10.8)
[2020-01-25 05:04] LABS: BUN/Creatinine Ratio 15.9 (8-20); Calcium 8.5 mg/dL (8.6-10.3); EGFR African American 218.4 (>60); EGFR Non-African American 180.5 (>60); Potassium 3.8 mmol/L (3.5-5.0)
[2020-01-25] MEDS: fentaNYL Patch Check Q Shift NOTE FOLLOW UP SCH ×2 (07:26→18:52)
[2020-01-26] MEDS: HYDROmorphone 1 MG/1 ML SYRINGE IV PRN ×10 (01:26→23:48)
[2020-01-26] MEDS: fentaNYL Patch Check Q Shift NOTE FOLLOW UP SCH ×2 (06:56→19:01)
[2020-01-26] MEDS: fentaNYL PATCH 100 MCG/HR 1 PATCH TRANSDERM SCH (23:43)
[2020-01-26] MEDS: Enoxaparin 40 MG/0.4 ML SYR SUBCUT SCH (23:46)
[2020-01-27] MEDS: HYDROmorphone 1 MG/1 ML SYRINGE IV PRN ×7 (02:54→22:06)
[2020-01-27 05:56] LABS: ABS Basophils 0.1 10^3/ul (0-0.2); ABS Eosinophils 0.7 10^3/ul (0-0.6); ABS Monocytes 0.9 10^3/ul (0-0.8); ABS Neutrophils 3.7 10^3/ul (1.5-7.7); Eosinophil % 7.2 %; Hematocrit 29 % (35-47); Hemoglobin 10.3 g/dL (12.0-16.0); Lymphocyte % 42.4 %; Mean Corpuscular HGB Conc 35 g/dL (31-36); Mean Corpuscular Hemoglobin 32 pg (27-31); Mean Corpuscular Volume 92 fL (80-97); Mean Platelet Volume 8.2 fL (7.4-10.4); Nucleated Red Blood Cells % 0.3; Platelet Count 551 10^3/uL (150-450); Red Blood Count 3.17 10^6 /uL (3.70-4.87); Red Cell Distribution Width 19 % (10-15); White Blood Count 9.4 10^3/uL (3.5-10.8)
[2020-01-27] MEDS: fentaNYL Patch Check Q Shift NOTE FOLLOW UP SCH ×2 (06:44→18:53)
[2020-01-27] MEDS: Enoxaparin 40 MG/0.4 ML SYR SUBCUT SCH (23:55)
[2020-01-28] MEDS: HYDROmorphone 1 MG/1 ML SYRINGE IV PRN ×9 (01:11→23:11)
[2020-01-28 06:30] LABS: ABS Basophils 0.1 10^3/ul (0-0.2); ABS Eosinophils 0.6 10^3/ul (0-0.6); ABS Lymphocytes 3.7 10^3/ul (1.0-4.8); ABS Monocytes 0.9 10^3/ul (0-0.8); ABS Neutrophils 2.3 10^3/ul (1.5-7.7); Hematocrit 27 % (35-47); Hemoglobin 9.5 g/dL (12.0-16.0); Lymphocyte % 49.3 %; Mean Corpuscular HGB Conc 35 g/dL (31-36); Mean Corpuscular Hemoglobin 32 pg (27-31); Mean Corpuscular Volume 91 fL (80-97); Mean Platelet Volume 7.7 fL (7.4-10.4); Nucleated Red Blood Cells % 0.5; Platelet Count 503 10^3/uL (150-450); Red Blood Count 2.97 10^6 /uL (3.70-4.87); Red Cell Distribution Width 18 % (10-15); White Blood Count 7.5 10^3/uL (3.5-10.8)
[2020-01-28] MEDS: fentaNYL Patch Check Q Shift NOTE FOLLOW UP SCH ×2 (07:19→19:25)
[2020-01-29] MEDS: fentaNYL PATCH 100 MCG/HR 1 PATCH TRANSDERM SCH (00:06)
[2020-01-29] MEDS: Enoxaparin 40 MG/0.4 ML SYR SUBCUT SCH (00:08)
[2020-01-29] MEDS: HYDROmorphone 1 MG/1 ML SYRINGE IV PRN ×4 (02:15→10:45)
[2020-01-29 05:44] LABS: ABS Basophils 0.2 10^3/ul (0-0.2); ABS Eosinophils 0.7 10^3/ul (0-0.6); ABS Lymphocytes 3.9 10^3/ul (1.0-4.8); ABS Monocytes 0.7 10^3/ul (0-0.8); ABS Neutrophils 2.2 10^3/ul (1.5-7.7); Eosinophil % 9.2 %; Hematocrit 26 % (35-47); Hemoglobin 9.3 g/dL (12.0-16.0); Lymphocyte % 51.1 %; Mean Corpuscular HGB Conc 37 g/dL (31-36); Mean Corpuscular Hemoglobin 33 pg (27-31); Mean Corpuscular Volume 92 fL (80-97); Mean Platelet Volume 7.9 fL (7.4-10.4); Nucleated Red Blood Cells % 0.5; Platelet Count 491 10^3/uL (150-450); Red Blood Count 2.79 10^6 /uL (3.70-4.87); Red Cell Distribution Width 18 % (10-15); White Blood Count 7.7 10^3/uL (3.5-10.8)
[2020-01-29] MEDS: fentaNYL Patch Check Q Shift NOTE FOLLOW UP SCH (06:50)
[2020-01-29] MEDS ORDERED: fentaNYL PATCH 100 MCG/HR 1 PATCH TRANSDERM SCH (09:00)
[2020-01-29 11:35] VITALS: BP 110/62
== END 2020-01-29 11:46 | disposition home or self-care (01) | DRG 662 ==
LOC: ED 19:18 → ICU 23:12 → OBSVTOIN 23:12 → INTOOBSV 23:12 → SSU 01-25 15:32
PROVIDERS: ADMIT Internal Medicine; ATTEND Internal Medicine